=== PATIENT | male | born 1970 | race Caucasian/White ===

== ENCOUNTER 2018-03-08 08:07 | Inpatient (IN) | payer MEDICAID ==
[2018-03-08 08:41] LABS: ADD MAN DIFF? NO
[2018-03-08 08:44] LABS: WHITE BLOOD COUNT 12.1 10^3/ul (4.8-10.8)
[2018-03-08 08:44] LABS: BASOPHIL # 0.1 10^3/ul (0.0-0.1); BASOPHILS % 0.7 % (0.0-2.0); EOSINOPHILS # 0.5 10^3/ul (0.0-0.5); EOSINOPHILS % 3.7 % (0.0-7.0); HEMOGLOBIN 12.9 g/dl (14.0-18.0); LYMPHOCYTES # 4.3 10^3/ul (0.8-2.9); LYMPHOCYTES % 35.4 % (15.0-51.0); MEAN CORPUSCULAR HEMOGLOBIN 31.2 pg (29.0-33.0); MEAN CORPUSCULAR HGB CONC 32.3 g/dl (32.0-37.0); MEAN CORPUSCULAR VOLUME 96.9 fl (82.0-101.0); MEAN PLATELET VOLUME 9.4 fl (7.4-10.4); MONOCYTE # 0.9 10^3/ul (0.3-0.9); MONOCYTES % 7.7 % (0.0-11.0); NEUTROPHIL # 5.9 10^3/ul (1.6-7.5); NEUTROPHILS % 48.5 % (39.0-77.0); PLATELET COUNT 255 10^3/UL (140-415); POSITIVE DIFF @See below; RED BLOOD COUNT 4.13 10^6/ul (4.70-6.10); RED CELL DISTRIBUTION WIDTH 12.5 % (11.5-14.5)
[2018-03-08] MEDS: SOD CHLORIDE 0.9% 1,000 ML IV ×2 (08:46→10:37)
[2018-03-08] MEDS: SOD CHLORIDE 0.9% 100 ML (08:50)
[2018-03-08] MEDS: IODIXANOL LOCM 100 ML BTL (08:51)
[2018-03-08] MEDS: HEPARIN 1000 UNITS/ML 10 ML INJ IV (08:55)
[2018-03-08] MEDS: HEPARIN 25000 UNITS/250 ML 250 ML IV (08:56)
[2018-03-08 09:00] LABS: ALANINE AMINOTRANSFERASE 85 IU/L (13-69); ALBUMIN 4.1 g/dl (3.3-4.9); ALBUMIN/GLOBULIN RATIO 1.28; ALKALINE PHOSPHATASE 86 IU/L (42-121); ANION GAP 30 (8-16); ASPARTATE AMINO TRANSFERASE 100 IU/L (15-46); BILIRUBIN,INDIRECT 0.5 mg/dl (0-1.1); BILIRUBIN,TOTAL 0.5 mg/dl (0.2-1.3); BLOOD UREA NITROGEN 19 mg/dl (7-20); CALCIUM 9.1 mg/dl (8.4-10.2); CARBON DIOXIDE 13 mmol/L (21-31); CHLORIDE 108 mmol/L (97-110); CREATININE 1.71 mg/dl (0.61-1.24); GLUCOSE 278 mg/dl (70-220); POTASSIUM 4.2 mmol/L (3.5-5.1); SODIUM 147 mmol/L (135-144); TOTAL PROTEIN 7.3 g/dl (6.1-8.1)
[2018-03-08 09:13] LABS: TROPONIN-I < 0.012 ng/ml (0.00-0.12)
[2018-03-08 09:14] LABS: ANISOCYTOSIS 1+ (0-0); EOSINOPHILS % (M) 5 % (0-7); GIANT THROMBO% (M) 1 % (0-0); INR 1.14; LYMPHOCYTES % (M) 42 % (15-51); METAMYELOCYTES #M 0.1 10^3/ul (0.0-0.0); METAMYELOCYTES %M 1 % (0-0); MICROCYTOSIS 1+ (0-0); MONOCYTE #M 0.3 10^3/ul (0.3-0.9); MONOCYTES % (M) 3 % (0-11); MYELOCYTES #M 0.3 10^3/ul (0.0-0.0); MYELOCYTES % (M) 3 % (0-0); PLATELET ESTIMATE NORMAL; POLYCHROMASIA 1+ (0-0); PROTIME 14.8 Sec (11.9-14.9); PT RATIO 1.2; REACTIVE LYMPHOCYTES #M 0.2 10^3/ul (0.0-0.0); REACTIVE LYMPHOCYTES% (M) 2 % (0-0); SEGMENTED NEUTROPHILS (M) % 44 % (39-77); SMUDGE%M 1 % (0-0)
[2018-03-08 09:15] LABS: PARTIAL THROMBOPLASTIN TIME 29.3 Sec (25.0-35.0)
[2018-03-08 09:19] LABS: LACTIC ACID 12.5 mmol/L (0.5-2.0)
[2018-03-08] MEDS: ALTEPLASE 100 MG INJ IV (09:49)
[2018-03-08] MEDS ORDERED: HYDROCODONE/APAP (5/325) TAB PO (10:30)
[2018-03-08] MEDS ORDERED: ONDANSETRON 4 MG INJ IV (10:30)
[2018-03-08] MEDS ORDERED: morphine 2 MG INJ IV (10:30)
[2018-03-08] MEDS ORDERED: NACL 0.9% 3 ML SYG IV (10:30)
[2018-03-08 10:54] LABS: LACTIC ACID 2.2 mmol/L (0.5-2.0)
[2018-03-08 12:46] LABS: LACTIC ACID 1.6 mmol/L (0.5-2.0)
[2018-03-08] MEDS: SOD CHLORIDE 0.45% 1,000 ML IV ×2 (13:03→23:25)
[2018-03-08 14:21] LABS: AADO2 Arterial 178.9 mmHg (7.0-24.0); Allen Test ACCEPTAB; Arterial Base Excess -10.2 mmol/L (-3.0-3); Arterial Blood Gas Oxygen Sat 98.9 mmHG (95.0-98.0); Arterial COHb 0.3 % (0.0-3.0); Arterial Fraction of Oxyhgb 98.2 % (93.0-99.0); Arterial HCO3 15.4 mmol/L (22.0-26.0); Arterial MetHb 0.4 % (0.0-1.5); Arterial Total Hemglobin 13.2 g/dl (12.0-18.0); Arterial pCO2 33.1 mmhg (35-45); Blood Gas IEPAP 15/5; Blood Gas PS 10; MODE MASK - BIPAP; Site Right Radial
[2018-03-08 16:54] LABS: ADD UMIC YES; UR ASCORBIC ACID NEGATIVE (NEGATIVE); UR BILIRUBIN (Dip) NEGATIVE (NEGATIVE); UR BLOOD (Dip) NEGATIVE (NEGATIVE); UR CLARITY SLIGHTLY CLOUDY (CLEAR); UR COLOR YELLOW (YELLOW); UR GLUCOSE (Dip) 1+ mg/dL (NEGATIVE); UR KETONES (Dip) NEGATIVE (NEGATIVE); UR LEUKOCYTE ESTERASE (Dip) NEGATIVE Leu/ul (NEGATIVE); UR NITRITE (Dip) NEGATIVE (NEGATIVE); UR RBC 1 /HPF (0-5); UR TOTAL PROTEIN (Dip) 2+ mg/dl (NEGATIVE); UR UROBILINOGEN (Dip) NEGATIVE (NEGATIVE); UR WBC 3 /HPF (0-5)
[2018-03-08] MEDS: INSULIN ASPART [NOVOLOG] 3 ML PEN SC ×2 (17:26→21:00)
[2018-03-08] MEDS ORDERED: DEXTROSE 50% 50 ML SYRINGE IV ×2 (17:30)
[2018-03-08] MEDS ORDERED: GLUCOSE GEL 15 GRAM TUBE PO ×2 (17:30)
[2018-03-08] MEDS ORDERED: GLUCOSE GEL 15 GRAM TUBE BUCCAL (17:30)
[2018-03-08] MEDS ORDERED: GLUCAGON 1 MG INJ IM (17:30)
[2018-03-08 19:19] LABS: PARTIAL THROMBOPLASTIN TIME 118.8 Sec (25.0-35.0)
[2018-03-08 22:16] LABS: INR 1.26; PT RATIO 1.3
[2018-03-08 22:20] LABS: PARTIAL THROMBOPLASTIN TIME 72.9 Sec (25.0-35.0)
[2018-03-09] MEDS: ACCU-CHEK XX (02:00)
[2018-03-09] MEDS ORDERED: HEPARIN 1000 UNITS/ML 10 ML INJ IV (03:30)
[2018-03-09 05:24] LABS: ADD MAN DIFF? NO
[2018-03-09 05:30] LABS: HAAIG REFLEX REFLEX FILED
[2018-03-09 05:32] LABS: WHITE BLOOD COUNT 9.6 10^3/ul (4.8-10.8)
[2018-03-09 05:32] LABS: BASOPHIL # 0.1 10^3/ul (0.0-0.1); BASOPHILS % 0.7 % (0.0-2.0); EOSINOPHILS # 0.4 10^3/ul (0.0-0.5); EOSINOPHILS % 3.9 % (0.0-7.0); HEMATOCRIT 34.5 % (42.0-52.0); HEMOGLOBIN 11.4 g/dl (14.0-18.0); LYMPHOCYTES # 1.9 10^3/ul (0.8-2.9); LYMPHOCYTES % 19.6 % (15.0-51.0); MEAN CORPUSCULAR HEMOGLOBIN 31.2 pg (29.0-33.0); MEAN CORPUSCULAR VOLUME 94.5 fl (82.0-101.0); MEAN PLATELET VOLUME 9.1 fl (7.4-10.4); NEUTROPHIL # 6.2 10^3/ul (1.6-7.5); NEUTROPHILS % 65.2 % (39.0-77.0); PLATELET COUNT 211 10^3/UL (140-415); RED BLOOD COUNT 3.65 10^6/ul (4.70-6.10); RED CELL DISTRIBUTION WIDTH 12.6 % (11.5-14.5)
[2018-03-09 05:58] LABS: INR 1.21; PROTIME 15.5 Sec (11.9-14.9); PT RATIO 1.2
[2018-03-09 05:59] LABS: PARTIAL THROMBOPLASTIN TIME 31.5 Sec (25.0-35.0)
[2018-03-09 06:07] LABS: ALANINE AMINOTRANSFERASE 79 IU/L (13-69); ALBUMIN 3.4 g/dl (3.3-4.9); ALBUMIN/GLOBULIN RATIO 1.17; ALKALINE PHOSPHATASE 64 IU/L (42-121); ANION GAP 16 (8-16); ASPARTATE AMINO TRANSFERASE 49 IU/L (15-46); BILIRUBIN,INDIRECT 0.5 mg/dl (0-1.1); BILIRUBIN,TOTAL 0.5 mg/dl (0.2-1.3); BLOOD UREA NITROGEN 13 mg/dl (7-20); CALCIUM 8.4 mg/dl (8.4-10.2); CARBON DIOXIDE 22 mmol/L (21-31); CHLORIDE 112 mmol/L (97-110); CREATININE 1.01 mg/dl (0.61-1.24); GLUCOSE 110 mg/dl (70-220); SODIUM 146 mmol/L (135-144); TOTAL PROTEIN 6.3 g/dl (6.1-8.1)
[2018-03-09] MEDS: HEPARIN 1000 UNITS/ML 10 ML INJ IV (06:19)
[2018-03-09] MEDS: HEPARIN 25000 UNITS/250 ML 250 ML IV ×4 (06:20→20:49)
[2018-03-09 06:30] LABS: HEPATITIS B SURFACE ANTIGEN NEGATIVE (NEGATIVE)
[2018-03-09 06:48] LABS: HEPATITIS B CORE ANTIBODY NEGATIVE (NEGATIVE); HEPATITIS C VIRAL ANTIBODY NEGATIVE (NEGATIVE)
[2018-03-09 07:12] LABS: PHOSPHORUS 3.1 mg/dl (2.5-4.9)
[2018-03-09 07:12] LABS: CHOL/HDL RATIO 4.7 RATIO; CHOLESTEROL 143 mg/dl (100-200); HDL CHOLESTEROL 30 mg/dl (27-67); LDL CHOLESTEROL,CALCULATED 91 mg/dl; MAGNESIUM 2.2 mg/dl (1.7-2.5); TRIGLYCERIDES 110 mg/dl (0-149)
[2018-03-09] MEDS: INSULIN ASPART [NOVOLOG] 3 ML PEN SC ×4 (07:35→20:56)
[2018-03-09 07:36] LABS: HEMOGLOBIN A1C 5.5 % (0-5.9)
[2018-03-09] MEDS: SOD CHLORIDE 0.45% 1,000 ML IV ×2 (08:59→16:13)
[2018-03-09] MEDS ORDERED: FENTAnyl 50 MCG/ML VIAL ×2 (13:57→14:49)
[2018-03-09] MEDS ORDERED: LIDOCAINE 1% (MDV) 20 ML INJ (13:58)
[2018-03-09] MEDS ORDERED: IODIXANOL LOCM 100 ML BTL (13:58)
[2018-03-09] MEDS ORDERED: MIDAZOLAM 1 MG/ML 2 ML INJ ×2 (13:58→14:48)
[2018-03-09] MEDS ORDERED: LIDOCAINE 1%/EPI 30 ML INJ (14:46)
[2018-03-09] MEDS ORDERED: CEFAZOLIN 1 GM/50 ML (PMX) 50 ML IVPB (14:48)
[2018-03-09 19:28] LABS: INR 1.16; PT RATIO 1.2
[2018-03-09 19:29] LABS: PARTIAL THROMBOPLASTIN TIME 62.7 Sec (25.0-35.0)
[2018-03-10] MEDS: ACCU-CHEK XX (02:00)
[2018-03-10] MEDS: SOD CHLORIDE 0.45% 1,000 ML IV ×2 (02:12→08:20)
[2018-03-10 02:39] LABS: INR 1.07; PT RATIO 1.1
[2018-03-10 02:56] LABS: PARTIAL THROMBOPLASTIN TIME 82.9 Sec (25.0-35.0)
[2018-03-10] MEDS: ACETAMINOPHEN 325 MG TAB PO ×2 (05:02→08:25)
[2018-03-10] MEDS: INSULIN ASPART [NOVOLOG] 3 ML PEN SC ×2 (08:00→11:31)
[2018-03-10] MEDS: HEPARIN 25000 UNITS/250 ML 250 ML IV ×2 (08:22→12:43)
[2018-03-10 09:55] LABS: ADD MAN DIFF? NO
[2018-03-10 09:57] LABS: WHITE BLOOD COUNT 8.6 10^3/ul (4.8-10.8)
[2018-03-10 09:57] LABS: BASOPHIL # 0.1 10^3/ul (0.0-0.1); BASOPHILS % 0.6 % (0.0-2.0); EOSINOPHILS # 0.5 10^3/ul (0.0-0.5); EOSINOPHILS % 5.3 % (0.0-7.0); HEMATOCRIT 33.8 % (42.0-52.0); HEMOGLOBIN 11.4 g/dl (14.0-18.0); LYMPHOCYTES # 2.2 10^3/ul (0.8-2.9); LYMPHOCYTES % 25.2 % (15.0-51.0); MEAN CORPUSCULAR HEMOGLOBIN 31.7 pg (29.0-33.0); MEAN CORPUSCULAR HGB CONC 33.7 g/dl (32.0-37.0); MEAN CORPUSCULAR VOLUME 93.9 fl (82.0-101.0); MEAN PLATELET VOLUME 9.1 fl (7.4-10.4); MONOCYTE # 0.6 10^3/ul (0.3-0.9); NEUTROPHIL # 5.3 10^3/ul (1.6-7.5); NEUTROPHILS % 61.2 % (39.0-77.0); PLATELET COUNT 253 10^3/UL (140-415); RED CELL DISTRIBUTION WIDTH 12.3 % (11.5-14.5)
[2018-03-10 10:31] LABS: ALANINE AMINOTRANSFERASE 58 IU/L (13-69); ALBUMIN 3.6 g/dl (3.3-4.9); ALBUMIN/GLOBULIN RATIO 1.24; ALKALINE PHOSPHATASE 66 IU/L (42-121); ANION GAP 14 (8-16); ASPARTATE AMINO TRANSFERASE 24 IU/L (15-46); BILIRUBIN,INDIRECT 0.6 mg/dl (0-1.1); BILIRUBIN,TOTAL 0.6 mg/dl (0.2-1.3); BLOOD UREA NITROGEN 9 mg/dl (7-20); CALCIUM 8.7 mg/dl (8.4-10.2); CARBON DIOXIDE 27 mmol/L (21-31); CHLORIDE 108 mmol/L (97-110); CREATININE 0.94 mg/dl (0.61-1.24); GLUCOSE 145 mg/dl (70-220); POTASSIUM 3.8 mmol/L (3.5-5.1); SODIUM 145 mmol/L (135-144); TOTAL PROTEIN 6.5 g/dl (6.1-8.1)
[2018-03-10 12:02] LABS: PARTIAL THROMBOPLASTIN TIME 113.1 Sec (25.0-35.0)
[2018-03-10 12:55] LABS: INR 1.09; PROTIME 14.3 Sec (11.9-14.9); PT RATIO 1.1
[2018-03-10 13:16] LABS: PARTIAL THROMBOPLASTIN TIME 100.6 Sec (25.0-35.0)
== END 2018-03-10 14:03 | disposition home or self-care (01) | DRG 167 ==
LOC: E/R 08:07 → MS4 03-09 19:01 → ICU 10:01
PROC: 06H03DZ Insertion of Intraluminal Device into Inferior Vena Cava, Percutaneous Approach (ICD-10-PCS; principal; 2018-03-09 13:30)
PROC: 3E03317 Introduction of Other Thrombolytic into Peripheral Vein, Percutaneous Approach (ICD-10-PCS; 2018-03-09 13:45)
DX: I26.92 Saddle embolus of pulmonary artery without acute cor pulmonale (principal); N17.9 Acute kidney failure, unspecified; E87.0 Hyperosmolality and hypernatremia; Z68.41 Body mass index [BMI] 40.0-44.9, adult; I82.402 Acute embolism and thrombosis of unspecified deep veins of left lower extremity; E66.01 Morbid (severe) obesity due to excess calories; E86.0 Dehydration; R06.03 Acute respiratory distress; R55 Syncope and collapse; R73.9 Hyperglycemia, unspecified; D64.9 Anemia, unspecified; D72.829 Elevated white blood cell count, unspecified; G43.909 Migraine, unspecified, not intractable, without status migrainosus; Z86.718 Personal history of other venous thrombosis and embolism; Z87.891 Personal history of nicotine dependence
CPT/HCPCS: 36600; 71045; 71275; 75940; 80053; 80061; 81001; 82803; 82962; 83036; 83605; 83735; 84100; 84484; 85025; 85610; 85730; 86704; 86709; 86803; 87040; 87081; 87086; 87340; 93005; 93306; 93970; 94660; 96374; 96375; 99291-25